=== PATIENT | male | born 1995 ===

== ENCOUNTER 2018-08-15 15:50 | Emergency (ER) | payer BC ==
[2018-08-15 16:22] VITALS: BP 138/77
--- NOTE | 2018-08-15 16:33 | UC ---
Elbow Pain - HPI Summary HPI Summary: patient hit elbow on a coffee table 4 days ago then played rugby that made the pain swelling and erythema worse----he has swelling and is unable to extend elbow erythema extends from just above wrist 1/3 up upper arm-- - History of Current Complaint Chief Complaint: UCUpperExtremity Stated Complaint: R ARM INJURY Time Seen by Provider: 08/15/18 16:22 Hx Obtained From: Patient Mechanism of Injury: fall Onset/Duration: Days - 4, Traumatic, Worse Since - today Pain Intensity: 5 Pain Scale Used: 0-10 Numeric Location Of Pain: Is Discrete @ - right elbow and arm Character: Aching, Throbbing Aggravating Factor(s): Movement Alleviating Factor(s): Nothing Associated Signs And Symptoms: Positive: Swelling, Redness - Allergies/Home Medications Allergies/Adverse Reactions: Allergies Allergy/AdvReac Type Severity Reaction Status Date / Time No Known Allergies Allergy Verified 08/15/18 16:11 Home Medications: Home Medications Fluconazole 100 MG TAB* [Diflucan 100 MG TAB*] 200 mg PO WEEKLY 08/15/18 [ History Confirmed 08/15/18] Ibuprofen TAB* [Motrin TAB* 400 MG] 200 mg PO Q6H PRN 08/15/18 [History Confirmed 08/15/18] PMH/Surg Hx/FS Hx/Imm Hx Previously Healthy: Yes - Surgical History Surgical History: None - Family History Known Family History: Positive: None - Social History Occupation: Student Lives: Dormitory/Roommates Alcohol Use: Occasionally Substance Use Type: None Smoking Status (MU): Never Smoked Tobacco Review of Systems All Other Systems Reviewed And Are Negative: Yes Constitutional: Positive: Fever, Chills Skin: Positive: Other - small open area right elbow, erythema and swelling from wrist to 1/3 way up right upper arm Eyes: Positive: Negative ENT: Positive: Negative Respiratory: Positive: Negative Cardiovascular: Positive: Negative Gastrointestinal: Positive: Negative Genitourinary: Positive: Negative Motor: Positive: Negative Neurovascular: Positive: Negative Musculoskeletal: Positive: Arthralgia, Decreased ROM - right elbow, Edema Neurological: Positive: Negative Psychological: Positive: Negative Is Patient Immunocompromised?: No Physical Exam Triage Information Reviewed: Yes Appearance: Well-Appearing, Well-Nourished, Pain Distress - mild Vital Signs: Initial Vital Signs Temp 100.9 F 08/15/18 16:15 Pulse 95 08/15/18 16:15 Resp 18 08/15/18 16:15 BP 138/77 08/15/18 16:15 Pulse Ox 100 08/15/18 16:15 Vital Signs Reviewed: Yes Eye Exam: Normal Eyes: Positive: Conjunctiva Clear ENT Exam: Normal ENT: Positive: Normal ENT inspection, Hearing grossly normal. Negative: Trismus , Muffled voice, Hoarse voice Dental Exam: Normal Neck exam: Normal Neck: Positive: Supple, Nontender Respiratory Exam: Normal Respiratory: Positive: No respiratory distress, No accessory muscle use Cardiovascular Exam: Normal Cardiovascular: Positive: RRR, Pulses Normal, Brisk Capillary Refill Musculoskeletal Exam: Other Musculoskeletal: Positive: Strength Limited @ - right arm, ROM Limited @ - right elbow, Edema @ - right elbow and forearm Neurological Exam: Normal Psychological Exam: Normal Skin Exam: Other Skin: Positive: Other - small open area right elbow Elbow Pain Course/Dx - Course Course Of Treatment: npo, send to hospital for comprehensive assessment and treatment - Differential Dx/Diagnosis Provider Diagnoses: cellullitis right elbow Discharge - Sign-Out/Discharge Documenting (check all that apply): Patient Departure All imaging exams completed and their final reports reviewed: No Studies - Discharge Plan Condition: Guarded Disposition: HOME-RECOMMEND TO ED Patient Education Materials: Cellulitis (ED) Referrals: No Primary Care Phys,NOPCP [Primary Care Provider] - Additional Instructions: nothing to eat or drink ---go to ed for further assessment and care - Billing Disposition and Condition Condition: GUARDED Disposition: Home-Recommend to ED - Attestation Statements Provider Attestation: I was available for consult. This patient was seen by the YOLANDA. The patient was not presented to, seen by, or examined by me. -Mihir
== END 2018-08-15 16:40 | disposition home health service (06) ==
LOC: UCEAST 15:50
DX: L03.113 Cellulitis of right upper limb (principal); W22.03XA Walked into furniture, initial encounter; Y92.9 Unspecified place or not applicable
CPT/HCPCS: 99202; G0463

== ENCOUNTER 2018-08-15 17:00 | Emergency (ER) | payer BC ==
[2018-08-15] MEDS ORDERED: Vancomycin(*) 1,000 MG in NS 0.9% 250 ML* 250 ML IVPB ONE (18:07)
[2018-08-15 18:36] LABS: Hematocrit 42 % (42-52); Mean Corpuscular HGB Conc 33 g/dl (31-36); Mean Corpuscular Hemoglobin 27 pg (27-31); Mean Corpuscular Volume 82 fL (80-94); Mean Platelet Volume 8.1 fL (7.4-10.4); Platelet Count 181 10^3/ul (150-450); Red Cell Distribution Width 15 % (10.5-15); White Blood Count 16.6 10^3/ul (3.5-10.8)
[2018-08-15 18:44] LABS: INR 1.33 (0.77-1.02)
--- NOTE | 2018-08-15 18:44 | ED ---
Complex/Multi-Sys Presentation - HPI Summary HPI Summary: The pt is a 22 y.o male presenting to the [facility] with a chief complaint of swollen elbow. The pt is accompanied with his parents. The mechanism of the injury was described as a blunt impact with the coffee table. Currently, the pt reports redness and pain at the right elbow. He also states that he has dermatitis of the leg left which he was seeing a land commissioner for. Prior to onset of symptoms the pt was taking antibiotics for a "athlete's foot infection " which he is no longer on. The pain is rated to be 5/10 and the symptoms are neither alleviated nor aggravated by anything in particular. Allergies noted and reviewed. The patient also plays rugby and may have "dinged it" as per triage report. Medications taken include tylenol (2) last night and 2 tablets of ibuprofen in the middle of the night and finally 1 tablet of ibuprofen 13:30 today. - History Of Current Complaint Chief Complaint: EDExtremityUpper Time Seen by Provider: 08/15/18 17:38 - Allergies/Home Medications Allergies/Adverse Reactions: Allergies Allergy/AdvReac Type Severity Reaction Status Date / Time No Known Allergies Allergy Verified 08/15/18 16:11 PMH/Surg Hx/FS Hx/Imm Hx Sensory History: Denies: Hx Deafness Opthamlomology History: Denies: Hx Legally Blind EENT History: Denies: Hx Deafness - Immunization History Date of Tetanus Vaccine: pt is college student up to date Infectious Disease History: No Infectious Disease History: Denies: Traveled Outside the [place] in Last 30 Days - Family History Known Family History: Positive: None Family History: Reviewed and Noncontributory - Social History Alcohol Use: Occasionally Substance Use Type: Reports: None Smoking Status (MU): Never Smoked Tobacco Review of Systems Constitutional: Negative Eyes: Negative ENT: Negative Cardiovascular: Negative Respiratory: Negative Gastrointestinal: Negative Genitourinary: Negative Positive: Edema - Right elbow, Other - Right elbow pain Skin: Other - Redness at the right elbow; Dermatitis at the left leg Neurological: Negative Psychological: Normal All Other Systems Reviewed And Are Negative: Yes Physical Exam - Summary Physical Exam Summary: Appearance: The patient is well-nourished in no acute distress and in no acute pain. Skin: Erythema over the right elbow and forearm . HEENT: The head is normocephalic and atraumatic. The pupils are equal and reactive. The conjunctivae are clear and without drainage. Nares are patent and without drainage. Mouth reveals moist mucous membranes and the throat is without erythema and exudate. The external ears are intact. The ear canals are patent and without drainage. The tympanic membranes are intact. Neck: The neck is supple with full range of motion and non-tender. There are no carotid bruits. There is no neck vein distension. Respiratory: Chest is non-tender. Lungs are clear to auscultation and breath sounds are symmetrical and equal. Cardiovascular: Heart is regular rate and rhythm. There is no murmur or rub auscultated. There is no peripheral edema and pulses are symmetrical and equal. Abdomen: The abdomen is soft and non-tender. There are normal bowel sounds heard in all four quadrants and there is no organomegaly palpated. Musculoskeletal: There is no back tenderness noted. Extremities are non-tender with full range of motion. There is good capillary refill. Diffuse swelling over the right elbow and forearm Neurological: Patient is alert and oriented to person, place and time. The patient has symmetrical motor strength in all four extremities. Cranial nerves are grossly intact. Deep tendon reflexes are symmetrical and equal in all four extremities. Psychiatric: The patient has an appropriate affect and does not exhibit any anxiety or depression. Triage Information Reviewed: Yes Vital Signs On Initial Exam: Initial Vitals Temp Pulse Resp BP Pulse Ox 101.4 F 113 16 149/78 100 08/15/18 17:04 08/15/18 17:04 08/15/18 17:04 08/15/18 17:04 08/15/18 17:04 Vital Signs Reviewed: Yes Diagnostics - Vital Signs Vital Signs Temp Pulse Resp BP Pulse Ox 08/15/18 18:28 98 08/15/18 17:35 109 100 08/15/18 17:04 101.4 F 113 16 149/78 100 - Laboratory Lab Results: Lab Results 08/15/18 Range/Units 18:20 WBC 16.6 H (3.5-10.8) 10^3/ul RBC 5.20 (4.00-5.40) 10^6/ul Hgb 14.0 (14.0-18.0) g/dl Hct 42 (42-52) % MCV 82 (80-94) fL MCH 27 (27-31) pg MCHC 33 (31-36) g/dl RDW 15 (10.5-15) % Plt Count 181 (150-450) 10^3/ul MPV 8.1 (7.4-10.4) fL Neut % (Auto) Pending Lymph % (Auto) Pending Overton % (Auto) Pending Eos % (Auto) Pending Baso % (Auto) Pending Absolute Neuts (auto) Pending Absolute Lymphs (auto) Pending Absolute Monos (auto) Pending Absolute Eos (auto) Pending Absolute Basos (auto) Pending Absolute Nucleated RBC Pending Nucleated RBC % Pending Result Diagrams: 08/15/18 18:20 08/15/18 18:20 Lab Statement: Any lab studies that have been ordered have been reviewed, and results considered in the medical decision making process. - Radiology Elbow X-ray Radiology Interpretation Completed By: ED Physician - Elbow X-ray reveals no acute processes as per ED Physician Complex Multi-Symp Course/Dx Course Of Treatment: Mr. Contreras presented to the emergency department with a painful right arm. A couple of days ago he smashed it against a table and then he played rugby yesterday. When he got up this morning he noted that it was swollen and erythematous and painful. He came in febrile and was given IV fluids and vancomycin for an obvious cellulitis of his right arm. Plain film showed no subcutaneous gas. Labs did reveal a leukocytosis of 16.6 and a CRP elevation of 120. His troponin was also in the indeterminate range at 0.05. After the antibiotics, fluids and Tylenol , he was feeling much improved and his troponin and lactic were normal. His [place] came up from [place] [facility] and he will follow-up with his PCP in the next day or 2. If he worsens he will report to the nearest ED. - Diagnoses Provider Diagnoses: Cellulitis Discharge - Sign-Out/Discharge Documenting (check all that apply): Patient Departure - Discharge Plan Condition: Stable Disposition: HOME Prescriptions: DOXYcycline CAP(*) [DOXYcycline 100MG CAP(*)] 100 mg PO BID #20 cap HYDROcodone/ACETAMIN 5-325 MG* [Tiger 5-325 TAB*] 1 tab PO Q6H PRN #20 tab MDD 4 PRN Reason: Pain Patient Education Materials: Cellulitis (ED) Referrals: [facility] [Provider Group] Additional Instructions: Follow up with primary care physician in the next 1 to 3 days. - Billing Disposition and Condition Condition: STABLE Disposition: Home - Attestation Statements Document Initiated by Scribe: Yes Documenting Scribe: Rajiv Navarro Provider For Whom Scribe is Documenting (Include Credential): Dr. Ronald Hernandez Scribe Attestation: Rajiv Quiros scribed for Dr. Ronald Hernandez on 08/15/18 at 2242. Scribe Documentation Reviewed: Yes Provider Attestation: The documentation as recorded by the Rajiv duran accurately reflects the service I personally performed and the decisions made by me, Dr. Ronald Hernandez
[2018-08-15 18:55] LABS: EGFR Non-African American 88.1 (>60)
[2018-08-15 19:01] LABS: ABS Basophils 0 10^3/ul (0-0.2); ABS Eosinophils 0.1 10^3/ul (0-0.6); ABS Monocytes 1.6 10^3/ul (0-0.8); ABS Neutrophils 13.8 10^3/ul (1.5-7.7); ABS Nucleated RBC 0 10^3/ul; Eosinophil % 0.5 % (0-6); Lymphocyte % 6.3 % (25-47); Nucleated Red Blood Cells % 0
[2018-08-15] MEDS ORDERED: NS 0.9% 1000 ML* 2,000 ML IV ONE (19:16)
[2018-08-15] MEDS ORDERED: oxyCODONE/Acetamin 5/325 MG* TAB PO ONE (21:19)
[2018-08-15] MEDS ORDERED: DOXYcycline CAP(*) 100 MG PO ONE (22:16)
[2018-08-15] MEDS ORDERED: Acetaminophen TAB* 325 MG PO ONE (22:26)
[2018-08-15 23:23] VITALS: BP 154/77
== END 2018-08-15 23:24 | disposition home or self-care (01) ==
LOC: ED 17:00
DX: L03.113 Cellulitis of right upper limb (principal)
CPT/HCPCS: 36415; 80053; 83605; 84484; 85025; 85610; 86140; 87040; 96360; 96361; 99283; A9270-GY; J3370